=== PATIENT | female | born 1975 | race Caucasian/White ===

== ENCOUNTER 2023-03-06 22:03 | Emergency (ER) | payer MEDICAID ==
[~2023-03-06] VITALS: Ht 165.1 cm; Wt 98.9 kg
[2023-03-06 22:35] VITALS: BP 127/85
--- NOTE | 2023-03-06 22:40 | NUR ---
PT TO LOBBY
--- NOTE | 2023-03-07 00:08 | NUR ---
Patient taken to bed 2.
--- NOTE | 2023-03-07 01:19 | NUR ---
Dr. Aldrich examining patient.
[2023-03-07] MEDS ORDERED: IBUP-2213 PO (01:25)
[2023-03-07] MEDS ORDERED: ACETAMINOPHEN EXTRA STRENGTH 500 MG TAB PO ONE (01:25)
[2023-03-07] MEDS ORDERED: PSEUDOEPHEDRINE 30 MG TAB PO ONE (01:25)
[2023-03-07] MEDS ORDERED: FLONAS NS (01:25)
[2023-03-07] MEDS ORDERED: IBUPROFEN 600 MG TAB PO ONE (01:25)
[2023-03-07] MEDS ORDERED: PSEU120T23 PO (01:25)
--- NOTE | 2023-03-07 01:29 | NUR ---
Patient discharged with v/s stable. Written and verbal after care instructions given and explained. Patient alert, oriented and verbalized understanding of instructions. Ambulatory with steady gait. All questions addressed prior to discharge. ID band removed. Patient advised to follow up with PMD. Rx of Ibuprefen, Flonase Nasal and Sudafed given. Patient educated on indication of medication including possible reaction and side effects. Opportunity to ask questions provided and answered.
[2023-03-07 01:32] VITALS: BP 122/85
== END 2023-03-07 01:32 | disposition home or self-care (01) ==
LOC: MED 22:03
DX: H92.01 Otalgia, right ear (principal); J32.8 Other chronic sinusitis; Z79.899 Other long term (current) drug therapy
CPT/HCPCS: 99283